=== PATIENT | male | born 1960 | race Caucasian/White ===

== ENCOUNTER 2017-01-29 07:19 | Emergency (ER) | payer OTHER ==
[~2017-01-29] VITALS: Ht 165.1 cm; Wt 147.4 kg
[2017-01-29 07:25] VITALS: BP 180/90
[2017-01-29] MEDS ORDERED: MORPHINE SULFAT30 M3 PO (08:07)
--- NOTE | 2017-01-29 08:09 | ED GENERAL ADULT ---
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 PT HAS APPOINTMENT FRIDAY AND TOOK HIS LAST PILL TODAY. WAS TOLD BY PAIN MANAGEMENT IN [place] TO GO TO ER FOR REFILL TO HOLD HIM OVER Triage Nurses Notes Reviewed? yes Onset: Just prior to arrival Duration: day(s):, constant Timing: recent history Severity: moderate No Modifying Factors: none HPI: The patient's prescriber is unable to fill his narcotic prescription and has been referred to pain management in 5 days and has no more medication. He denies fever chills nausea vomiting diarrhea abdominal pain chest pain shortness breath headache dysuria rash bleeding. Past History Travel History Traveled to [place] past 21 day No Medical History Any Pertinent Medical History? 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 No Review of Systems Review of Systems Constitutional: Reports: no symptoms. EENTM: Reports: no symptoms. Respiratory: Reports: no symptoms. Cardiovascular: Reports: no symptoms. GI: Reports: no symptoms. Genitourinary: Reports: no symptoms. Musculoskeletal: Reports: see HPI, back pain. Skin: Reports: no symptoms. Neurological/Psychological: Reports: no symptoms. Hematologic/Endocrine: Reports: no symptoms. Immunologic/Allergic: Reports: no symptoms. All Other Systems: Reviewed and Negative Physical Exam Physical Exam General Appearance: well developed/nourished, alert, awake, comfortable, obese Head: atraumatic, normal appearance Eyes: Bilateral: normal appearance, PERRL, EOMI. Ears, Nose, Throat: normal pharynx, normal ENT inspection Neck: normal inspection, supple, full range of motion, no midline tenderness Respiratory: normal breath sounds, chest non-tender, no respiratory distress, quiet respiration, lungs clear Cardiovascular: regular rate/rhythm, normal peripheral pulses, norml femoral pulses equa Peripheral Pulses: 4+ carotid (R), 4+ carotid (L) Gastrointestinal: normal bowel sounds, soft, non-tender, no organomegaly Back: normal inspection, normal range of motion Extremities: normal inspection, normal capillary refill, normal range of motion, no edema Neurologic/Psych: no motor/sensory deficits, awake, alert, oriented x 3, normal gait, normal mood/affect, 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 Skin: intact, normal color, warm/dry Lymphatic: no anterior cervical haritha Core Measures ACS in differential dx? No CVA/TIA Diagnosis: No Severe Sepsis Present: No Septic Shock Present: No Progress Differential Diagnoses I considered the following diagnoses in my evaluation of the patient: Chronic pain syndrome Plan of Care: Prescription refill Initial ED EKG: none Departure Departure Time of Disposition: 804 Disposition: HOME OR SELF CARE Condition: Stable Clinical Impression Primary Impression: Encounter for medication refill Referrals: MAGNUS KIMBALL MD (PCP/Family) Departure Forms: Customer Survey General Discharge Information Prescriptions: Current Visit Scripts Morphine Sulfate (Morphine Sulfate ER) 1 TAB PO Q6H PRN pain #25 TAB Critical Care Note Critical Care Note Critical Care Time: non-applicable
== END 2017-01-29 08:16 ==
LOC: ERH 07:19
DX: Z76.0 Encounter for issue of repeat prescription (principal)

== ENCOUNTER 2017-04-04 19:23 | Emergency (ER) | payer OTHER ==
[~2017-04-04] VITALS: Ht 165.1 cm; Wt 153.3 kg
[~2017-04-04 19:23] MED LIST: MORPHINE SULFAT30 M3 PO
[2017-04-04 19:28] VITALS: BP 148/87
--- NOTE | 2017-04-04 19:44 | ED UPPER/LOWER EXTREMITY COMPL ---
History of Present Illness General Chief Complaint: General Adult Stated Complaint: PT VARICOSE VEINS IN RT LEG WON'T STOP BLEEDING Source: patient Exam Limitations: no limitations Vital Signs & Intake/Output Vital Signs & Intake/Output Vital Signs Date Time Temp Pulse Resp B/P B/P Pulse O2 O2 Flow FiO2 Mean Ox Delivery Rate 04/04 1928 98.7 75 16 148/87 94 Room Air ED Intake and Output 04/05 0000 04/04 1200 Intake Total Output Total Balance Patient 338 lb Weight Weight Reported by Patient Measurement Method Allergies Coded Allergies: MDX - Ibuprofen (Ibuprofen) (UPSET STOMACH 05/17/11) Reconcile Medications Morphine Sulfate (Morphine Sulfate ER) 30 MG TABLET.ER 1 TAB PO Q6H PRN pain Triage Note: PT TO ED FOR "VARICOSE VEINS ON R LEG THAT WON'T STOP BLEEDING" BLEEDING STARTED YESTERDAY MORNING WHILE PT WAS IN SHOWER. HX OF SAME IN L LEG. BANDAGE NOTED TO BE SATURATED IN TRAIGE. THIS RN CHANGED DRESSING, BLEEDING CONTROLLED AT THIS TIME. PT OFFERS NO ADDITIONAL COMPLAINTS. PT TKAES ASPIRIN FOR HEART HEALTH. Triage Nurses Notes Reviewed? yes Onset: Abrupt Duration: hour(s): Timing: single episode today Severity: mild Pain/Injury Location: Right: Leg. Method of Injury: "I scratched my varicose veins with a towel." Modifying Factors: Improves With: rest. Associated Symptoms: sudden HPI: 56-year-old gentleman in prior good health presents with bleeding from a punctate varicose vein. He states that he given a shower earlier today and noted bleeding from varicose vein after he rubbed it with a towel. The bleeding self resolved. Then, he noted that the bleeding began again. This went on throughout much of the evening. Upon presentation he notes that the bleeding has stopped. He has no pain swelling redness is otherwise well. Past History Travel History Traveled to [place] past 21 day No Medical History Any Pertinent Medical History? 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 No Review of Systems Review of Systems Constitutional: Reports: no symptoms. EENTM: Reports: no symptoms. Respiratory: Reports: no symptoms. Cardiovascular: Reports: no symptoms. Gastrointestinal/Abdominal: Reports: no symptoms. Genitourinary: Reports: no symptoms. Musculoskeletal: Reports: no symptoms. Skin: Reports: no symptoms. Neurological/Psychological: Reports: no symptoms. Hematologic/Endocrine: Reports: no symptoms. Immunological: Reports: no symptoms. All Other Systems: Reviewed and Negative Physical Exam Physical Exam General Appearance: well developed/nourished, mild distress Head: atraumatic Eyes: Bilateral: normal appearance. Ears, Nose, Throat: normal pharynx, normal ENT inspection, hearing grossly normal Neck: normal inspection, supple Cardiovascular/Respiratory: regular rate/rhythm Back: normal inspection Leg Right: punctate varicose vein with well formed clot. no active bleeding. Skin: intact, normal color, warm/dry Lymphatic: no anterior cervical haritha Progress Differential Diagnosis: varicose vein Plan of Care: gauze pressure bandage placed... encouraged close follow up. Departure Departure Disposition: HOME OR SELF CARE Condition: Stable Clinical Impression Primary Impression: Bleeding from varicose vein Referrals: MAGNUS KIMBALL MD (PCP/Family) Departure Forms: Customer Survey General Discharge Information Comments pressure bandage placed around site of bleeding... no active bleeding in ED. referred to vascular surgeon.
== END 2017-04-04 20:26 ==
LOC: ERH 19:23
DX: I83.90 Asymptomatic varicose veins of unspecified lower extremity (principal)
CPT/HCPCS: 99282

== ENCOUNTER 2017-04-06 17:01 | Emergency (ER) | payer OTHER ==
[~2017-04-06] VITALS: Ht 165.1 cm; Wt 153.3 kg
[2017-04-06] MEDS ORDERED: METFORMIN HCL500 M3 PO (18:17)
[2017-04-06] MEDS ORDERED: HYDROCODON-ACE1 EAC1 PO (18:18)
[2017-04-06] MEDS ORDERED: MORPHINE SULFAT30 M3 PO (18:18)
[2017-04-06] MEDS ORDERED: AZELASTINE137 MCG/0. NASB (18:19)
[2017-04-06] MEDS ORDERED: METOPROLOL TART25 M1 PO (18:19)
[2017-04-06] MEDS ORDERED: HUMIRA PEN40 MG/0.8 SC (18:19)
[2017-04-06] MEDS ORDERED: ZETIA10 M1 PO (18:19)
[2017-04-06] MEDS ORDERED: MONTELUKAST SOD10 M1 PO (18:20)
[2017-04-06] MEDS ORDERED: LOSARTAN-HCTZ1 EAC2 PO (18:20)
[2017-04-06] MEDS ORDERED: GABAPENTIN300 M2 PO (18:20)
[2017-04-06] MEDS ORDERED: TESTOSTERO200 MG/1 M IM (18:21)
[2017-04-06] MEDS ORDERED: CLOTRIMAZOLE-BE15 GM TOP (18:21)
[2017-04-06] MEDS ORDERED: SPIRIVA RESPIMAT4 GM INH (18:21)
[2017-04-06] MEDS ORDERED: MAGNESIUM400 M1 PO (18:22)
[2017-04-06] MEDS ORDERED: ASPIRIN EC81 M1 PO (18:22)
[2017-04-06] MEDS ORDERED: PROBIOTIC1 EACH PO (18:23)
[2017-04-06] MEDS ORDERED: POTASSIUM99 M1 PO (18:23)
--- NOTE | 2017-04-06 18:30 | ED SKIN/ALLERGY COMPLAINT ---
History of Present Illness General Chief Complaint: Lower Extremity Problems Stated Complaint: BLEEDING FROM VARICOSE VEIN Source: patient Exam Limitations: no limitations Allergies Coded Allergies: ibuprofen (GI UPSET 04/06/17) Reconcile Medications Adalimumab (Humira Pen) 40 MG/0.8 ML PEN.IJ.KIT 1 SYR SC Q2W PSORIASIS ( Reported) Aspirin (Ecotrin*) 81 MG TABLET.DR 1 TAB PO DAILY HEART/BLOOD (Reported) Azelastine HCl 137 MCG (0.1 %) SPRAY.PUMP 2 SPRAY NASB PRN NASAL CONGESTION ( Reported) Clotrimazole/Betamethasone Dip (Clotrimazole-Betamethasone Crm) 1 %-0.05 % CREAM..G. 1 KEISHA TOP PRN PSORIASIS (Reported) apply to affected area(s) Ezetimibe (Zetia) 10 MG TABLET 1 TAB PO DAILY CHOLESTEROL (Reported) Gabapentin 300 MG CAPSULE 1 CAP PO BID NERVE PAIN (Reported) Hydrocodone/Acetaminophen (Hydrocodon-Acetaminophn 10-325) 10 MG-325 MG TABLET 1 TAB PO Q8H PAIN (Reported) Lactobacillus Acidophilus (Probiotic) (Unknown Strength) CAPSULE (Unknown Dose ) PO DAILY PROBIOTIC (Reported) Losartan/Hydrochlorothiazide (Losartan-Hctz 100-25 MG Tab) 100 MG-25 MG TABLET 1 TAB PO DAILY BP (Reported) Magnesium Oxide (Magnesium) 400 MG CAPSULE 1 CAP PO TUESTHURSSAT SUPPLEMENT ( Reported) Metformin HCl 500 MG TABLET 0.5 TAB PO DAILY DM (Reported) Metoprolol Tartrate 25 MG TABLET 2 TAB PO BID HEART/BP (Reported) Montelukast Sodium 10 MG TABLET 1 TAB PO DAILY ALLERGIES (Reported) Morphine Sulfate (Morphine Sulfate ER) 30 MG TABLET.ER 1 TAB PO Q8H PAIN ( Reported) Potassium Gluconate (Potassium) 595 MG (99 MG) TABLET 1 TAB PO Friday SUPPLEMENT (Reported) Testosterone Cypionate 200 MG/ML VIAL 1.5 ML IM Q3W HRT (Reported) Tiotropium [place] (Spiriva Respimat) 2.5 MCG/ACTUATION MIST.INHAL 1 PUFF INH DAILY COPD (Reported) Triage Note: PT STATES HE IS BLEEDING FROM HIS VARICOSE VEIN. PT STATES HE WAS SEEN HERE FRIDAY FOR SAME. PT STATES HE TOOK THE GUAZE OFF TODAY AND IT BEGAN BLEEDING AGAIN Triage Nurses Notes Reviewed? yes HPI: This patient is a 56-year-old male who presented to the emergency department today for evaluation of a bleeding varicose vein to his right leg. The patient reported that he was seen here in the emergency Department for the same and a pressure dressing was applied to the wound. He was given a vascular surgeon who he has not followed up with yet because it is currently the weekend. The patient reported that he took the bandage off today and the vein began to bleed again. He denied any pain. He denied any dizziness, lightheadedness, chest pain, difficult breathing, abdominal pain, nausea, vomiting, or any other associated symptoms. This patient is not on any blood thinners. (DONNELL LONDON PA-C) Vital Signs & Intake/Output Vital Signs & Intake/Output Vital Signs Date Time Temp Pulse Resp B/P B/P Pulse O2 O2 Flow FiO2 Mean Ox Delivery Rate 04/06 1903 98.6 87 24 148/82 92 Room Air 04/06 1711 99.4 84 18 170/98 92 Room Air ED Intake and Output 04/07 0000 04/06 1200 Intake Total Output Total Balance Patient 338 lb Weight Weight Reported by Patient Measurement Method Past History Travel History Traveled to [facility] past 21 day No Medical History Any Pertinent Medical History? 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 No (DONNELL LONDON PA-C) Review of Systems Review of Systems Constitutional: Reports: no symptoms. EENTM: Reports: no symptoms. Respiratory: Reports: no symptoms. Cardiovascular: Reports: no symptoms. GI: Reports: no symptoms. Genitourinary: Reports: no symptoms. Musculoskeletal: Reports: no symptoms. Skin: Reports: no symptoms. Neurological/Psychological: Reports: no symptoms. Hematologic/Endocrine: Reports: see HPI. All Other Systems: Reviewed and Negative (DONNELL LONDON PA-C) Physical Exam Physical Exam General Appearance: well developed/nourished, no apparent distress, alert, awake Comments: Well-developed well-nourished person in no acute distress HEENT: Head normocephalic, moist mucous membranes Neck: Supple, no lymphadenopathy Back: Antalgic gait Respiratory: No respiratory distress. Speaking in full sentences Extremities: No edema, full range of motion Neuro: Alert and oriented x3 Psych: Mood affect normal, normal memory normal judgment. Skin: Warm and dry, no rash on exposed skin. To the distal, anterior right orellana there is actively bleeding varicose vein with no surrounding erythema and mild amount of surrounding edema. Mildly tender to palpation around the site. (DONNELL LONDON PA-C) Progress Differential Diagnosis: abscess/cellulitis, drug reaction, VARICOSE VEIN Plan of Care: Current Medications Sig/Jerry Start time Last Medication Dose Stop Time Status Admin Lidocaine/Epinephrine 10 ML ONCE ONE 04/06 1815 UNVr (Lidocaine 1% Epi- 04/06 1816 10ML Inj) Departure Departure Disposition: HOME OR SELF CARE Condition: Stable Clinical Impression Primary Impression: Bleeding from varicose vein Qualifiers: Laterality: right Qualified Code: I83.891 - Varicose veins of right lower extremities with other complications Referrals: JIGAR GRULLON,MAGNUS Hummel (PCP/Family) Additional Instructions: Please follow up with the vascular surgeon whose information has been given to you; call them on Friday to schedule an appointment. Return to the emergency department if you are not seen by the vascular surgeonin 7-10 days to evaluate the wound site and to have the suture removed. Return sooner for any worsening symptoms, excessive pain, worsening bleeding, spreading of redness around the site, pus drainage from the site, fevers, chills, or for any other concerns. 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 I have also reviewed all the pertinent lab results and diagnostic results. I agree with the findings and the plan of care as documented in the PA's/JUNIOR MANUFACTURING ENGINEER's documentation. [] I have reviewed the ED Record and agree with the PA's/JUNIOR MANUFACTURING ENGINEER's documentation. [] Additions or exceptions (if any) to the PAs/JUNIOR MANUFACTURING ENGINEER's note and plan are summarized below: [] (DEIDRE GRULLON,JOANNA) Procedures Laceration/Wound Repair Laceration/Wound Repair: Wound Location: lower extremity (RIGHT ANTERIOR ORELLANA) Wound's Depth, Shape: VARICOSE VEIN Wound Length (cm): 0.5 Wound Explored: irrigated extensively Irrigated w/ Saline (ccs): 200 Betadine Prep? Yes Anesthesia: lidocaine w/ epi Volume Anesthetic (ccs): 3 Wound Repaired With: sutures Suture Size/Type: 4:0 Number of Sutures: 1 Layer Closure? No Sterile Dressing Applied: Yes Progress: PURSESTRING suture placed using sterile procedure after 1% lidocaine with epinephrine was used for local anesthesia to close off the opened, bleeding varicose vein. Patient tolerated the procedure well. JOSUÉ student assisted with the procedure. (LITA ONEILL,DONNELL)
[2017-04-06 19:03] VITALS: BP 148/82
== END 2017-04-06 19:04 ==
LOC: ERH 17:01
DX: I83.891 Varicose veins of right lower extremity with other complications (principal)

== ENCOUNTER 2017-04-14 07:01 | Emergency (ER) | payer OTHER ==
[~2017-04-14] VITALS: Ht 165.1 cm; Wt 153.3 kg
[~2017-04-14 07:01] MED LIST changes: +ASPIRIN EC81 M1 PO; +AZELASTINE137 MCG/0. NASB; +CLOTRIMAZOLE-BE15 GM TOP; +GABAPENTIN300 M2 PO; +HUMIRA PEN40 MG/0.8 SC; +HYDROCODON-ACE1 EAC1 PO; +LOSARTAN-HCTZ1 EAC2 PO; +MAGNESIUM400 M1 PO; +METFORMIN HCL500 M3 PO; +METOPROLOL TART25 M1 PO; +MONTELUKAST SOD10 M1 PO; +POTASSIUM99 M1 PO; +PROBIOTIC1 EACH PO; +SPIRIVA RESPIMAT4 GM INH; +TESTOSTERO200 MG/1 M IM; +ZETIA10 M1 PO
[2017-04-14 07:12] VITALS: BP 139/81
--- NOTE | 2017-04-14 07:27 | ED GENERAL ADULT ---
History of Present Illness General Chief Complaint: Suture Removal/Wound Recheck Stated Complaint: SUTURE REMOVAL Source: patient Exam Limitations: no limitations Vital Signs & Intake/Output Vital Signs & Intake/Output Vital Signs Date Time Temp Pulse Resp B/P B/P Pulse O2 O2 Flow FiO2 Mean Ox Delivery Rate 04/14 0712 98.0 72 18 139/81 95 Room Air Allergies Coded Allergies: ibuprofen (GI UPSET 04/06/17) Reconcile Medications Adalimumab (Humira Pen) 40 MG/0.8 ML PEN.IJ.KIT 1 SYR SC Q2W PSORIASIS ( Reported) Aspirin (Ecotrin*) 81 MG TABLET.DR 1 TAB PO DAILY HEART/BLOOD (Reported) Azelastine HCl 137 MCG (0.1 %) SPRAY.PUMP 2 SPRAY NASB PRN NASAL CONGESTION ( Reported) Clotrimazole/Betamethasone Dip (Clotrimazole-Betamethasone Crm) 1 %-0.05 % CREAM..G. 1 KEISHA TOP PRN PSORIASIS (Reported) apply to affected area(s) Ezetimibe (Zetia) 10 MG TABLET 1 TAB PO DAILY CHOLESTEROL (Reported) Gabapentin 300 MG CAPSULE 1 CAP PO BID NERVE PAIN (Reported) Hydrocodone/Acetaminophen (Hydrocodon-Acetaminophn 10-325) 10 MG-325 MG TABLET 1 TAB PO Q8H PAIN (Reported) Lactobacillus Acidophilus (Probiotic) (Unknown Strength) CAPSULE (Unknown Dose ) PO DAILY PROBIOTIC (Reported) Losartan/Hydrochlorothiazide (Losartan-Hctz 100-25 MG Tab) 100 MG-25 MG TABLET 1 TAB PO DAILY BP (Reported) Magnesium Oxide (Magnesium) 400 MG CAPSULE 1 CAP PO TuThSa SUPPLEMENT ( Reported) Metformin HCl 500 MG TABLET 0.5 TAB PO DAILY DM (Reported) Metoprolol Tartrate 25 MG TABLET 2 TAB PO BID HEART/BP (Reported) Montelukast Sodium 10 MG TABLET 1 TAB PO DAILY ALLERGIES (Reported) Morphine Sulfate (Morphine Sulfate ER) 30 MG TABLET.ER 1 TAB PO Q8H PAIN ( Reported) Potassium Gluconate (Potassium) 595 MG (99 MG) TABLET 1 TAB PO MoWeFr SUPPLEMENT (Reported) Testosterone Cypionate 200 MG/ML VIAL 1.5 ML IM Q3W HRT (Reported) Tiotropium [place] (Spiriva Respimat) 2.5 MCG/ACTUATION MIST.INHAL 1 PUFF INH DAILY COPD (Reported) Triage Note: 56 Y/O MALE REQUESTING SUTURE REMOVAL FROM R LOWER EXTREMITY - ? 1 PLACED LAST FRIDAY DUE TO VARICOSE VEIN THAT "POPPED". PT STATES "I THINK ITS JUST ONE BUT THE DOCTOR SAID HE LOOPED IT" PT DENIES COMPLAINTS. Triage Nurses Notes Reviewed? yes Onset: Abrupt Duration: day(s): Timing: recent history HPI: 04/14/17 8 AM 56-year-old man presents to the emergency department for suture removal to the right lower extremity. The patient was seen in the emergency department approximately one week ago for bleeding varicosity. He had a single running suture placed by the ED physician to stop ongoing bleeding. The onset of the symptoms were abrupt, the duration was one week, the severity was significant as his symptoms required him to come to the emergency department for care. He has no associated shortness of breath chest pain or other complaints. Past History Travel History Traveled to [facility] past 21 day No Medical History Any Pertinent Medical History? 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 No Review of Systems Review of Systems Constitutional: Reports: no symptoms. EENTM: Reports: no symptoms. Respiratory: Denies: short of breath. Cardiovascular: Denies: chest pain. GI: Reports: no symptoms. Genitourinary: Reports: no symptoms. Musculoskeletal: Reports: muscle pain. Skin: Denies: rash. Neurological/Psychological: Reports: no symptoms. Hematologic/Endocrine: Reports: see HPI. Physical Exam Physical Exam General Appearance: well developed/nourished, alert, awake Head: atraumatic, normal appearance Eyes: Bilateral: normal appearance, PERRL, EOMI. Ears, Nose, Throat: normal pharynx, normal ENT inspection Neck: normal inspection, supple Respiratory: normal breath sounds, chest non-tender, no respiratory distress Cardiovascular: regular rate/rhythm Peripheral Pulses: 4+ dorsalis pedis (R) Gastrointestinal: non-tender Extremities: 1 suture right leg Neurologic/Psych: no motor/sensory deficits, awake, alert, oriented x 3 Skin: intact, normal color, warm/dry Core Measures ACS in differential dx? No CVA/TIA Diagnosis: No Severe Sepsis Present: No Septic Shock Present: No Progress Differential Diagnoses I considered the following diagnoses in my evaluation of the patient: [Wound infection, abscess, retained foreign body, ongoing bleeding varicosity] Plan of Care: Procedure The suture was removed from the right lower leg. There was no active bleeding no redness no complications. Sterile dressing was applied. Initial ED EKG: none Departure Departure Disposition: STILL A PATIENT Condition: Stable Clinical Impression Primary Impression: Visit for suture removal Referrals: MAGNUS KIMBALL MD (PCP/Family) Departure Forms: Customer Survey General Discharge Information Critical Care Note Critical Care Note Critical Care Time: non-applicable
== END 2017-04-14 08:03 ==
LOC: ERH 07:01
DX: S81.811D Laceration without foreign body, right lower leg, subsequent encounter (principal)
CPT/HCPCS: 99281

== ENCOUNTER 2017-04-25 18:09 | Emergency (ER) | payer OTHER ==
[~2017-04-25] VITALS: Ht 165.1 cm; Wt 151.0 kg
[2017-04-25 19:06] LABS: ABSOLUTE BASOPHIL COUNT 0 /CUMM (0.0-0.2); ABSOLUTE EOSINOPHIL COUNT 0 /CUMM (0.0-0.7); ABSOLUTE LYMPH COUNT 1.1 /CUMM (1.2-3.4); ABSOLUTE MONOCYTE COUNT 0.9 /CUMM (0.10-0.60); BASOPHIL % 0 % (0.0-2.0); EOSINOPHIL % 0.1 % (0-5); GRANULOCYTE % 88.2 % (42.2-75.2); HEMATOCRIT 52.1 % (42-52); MEAN CORPUSCULAR HGB 28.3 PG (27.0-31.0); MEAN CORPUSCULAR VOLUME 85.7 FL (80.0-94.0); MEAN PLATELET VOLUME 8.7 FL (7.4-10.4); PLATELET COUNT 165 /CUMM (130-400); RBC DISTRIBUTION WIDTH 16.3 % (11.5-14.5); RED BLOOD CELL CT 6.08 /CUMM (4.70-6.10)
--- NOTE | 2017-04-25 19:31 | RADIOLOGY REPORT ---
EXAMINATION: XR CHEST CLINICAL INFORMATION: Fever and cough COMPARISON: 03/27/2017 TECHNIQUE: 2 views of the chest were obtained. FINDINGS: Median sternotomy wires appear intact. Low lung volumes. Diffuse bronchial wall thickening. No consolidation, edema, or effusion. No pneumothorax. The cardiomediastinal silhouette is unchanged. Degenerative changes of the spine. IMPRESSION: No consolidation. Bronchial wall thickening can be seen with a small airways process such as asthma or atypical/viral infection.
[2017-04-25] MEDS ORDERED: AMLODIPINE BESYL5 M1 PO (20:13)
--- NOTE | 2017-04-25 20:19 | ED DYSPNEA/ASTHMA COMPLAINT ---
History of Present Illness General Chief Complaint: General Adult Stated Complaint: FEVER AND FLANK PAIN NO C/P OR SOB Source: patient Exam Limitations: no limitations Vital Signs & Intake/Output Vital Signs & Intake/Output Vital Signs Date Time Temp Pulse Resp B/P B/P Pulse O2 O2 Flow FiO2 Mean Ox Delivery Rate 04/25 2108 98.5 98 18 128/76 96 Room Air 04/25 2050 Room Air 04/25 1824 100.8 105 18 134/78 94 Room Air ED Intake and Output 04/26 0000 04/25 1200 Intake Total 50 Output Total Balance 50 Intake, IV 50 Patient 333 lb Weight Allergies Coded Allergies: ibuprofen (GI UPSET 04/06/17) Reconcile Medications Adalimumab (Humira Pen) 40 MG/0.8 ML PEN.IJ.KIT 1 SYR SC Q2W PSORIASIS ( Reported) Amlodipine Besylate 5 MG TABLET 1 TAB PO DAILY BP (Reported) Aspirin (Ecotrin*) 81 MG TABLET.DR 1 TAB PO DAILY HEART/BLOOD (Reported) Azelastine HCl 137 MCG (0.1 %) SPRAY.PUMP 2 SPRAY NASB PRN NASAL CONGESTION ( Reported) Clotrimazole/Betamethasone Dip (Clotrimazole-Betamethasone Crm) 1 %-0.05 % CREAM..G. 1 KEISHA TOP PRN PSORIASIS (Reported) apply to affected area(s) Ezetimibe (Zetia) 10 MG TABLET 1 TAB PO DAILY CHOLESTEROL (Reported) Gabapentin 300 MG CAPSULE 1 CAP PO BID NERVE PAIN (Reported) Hydrocodone/Acetaminophen (Hydrocodon-Acetaminophn 10-325) 10 MG-325 MG TABLET 1 TAB PO Q8H PAIN (Reported) Lactobacillus Acidophilus (Probiotic) (Unknown Strength) CAPSULE (Unknown Dose ) PO DAILY PROBIOTIC (Reported) Levofloxacin (Levaquin) 500 MG TABLET 1 TAB PO DAILY bronchitis/fever Losartan/Hydrochlorothiazide (Losartan-Hctz 100-25 MG Tab) 100 MG-25 MG TABLET 1 TAB PO DAILY BP (Reported) Magnesium Oxide (Magnesium) 400 MG CAPSULE 1 CAP PO TuThSa SUPPLEMENT ( Reported) Metformin HCl 500 MG TABLET 0.5 TAB PO DAILY DM (Reported) Metoprolol Tartrate 25 MG TABLET 2 TAB PO BID HEART/BP (Reported) Montelukast Sodium 10 MG TABLET 1 TAB PO DAILY ALLERGIES (Reported) Morphine Sulfate (Morphine Sulfate ER) 30 MG TABLET.ER 1 TAB PO Q8H PAIN ( Reported) Potassium Gluconate (Potassium) 595 MG (99 MG) TABLET 1 TAB PO MoWeFr SUPPLEMENT (Reported) Testosterone Cypionate 200 MG/ML VIAL 1.5 ML IM Q3W HRT (Reported) Tiotropium Bishop (Spiriva Respimat) 2.5 MCG/ACTUATION MIST.INHAL 1 PUFF INH DAILY COPD (Reported) Triage Note: 56 YEAR OLD ,MALE SENT TO ER BY HIS PMD TO RULE OUT PNA/ UROSEPSIS, PT STATES THAT HE HAS HAD FEVER SINCE YESTERDAY, HAS BEEN TAKING ADVIL FOR TEMP. FEBRILE 100.8, TOOK ADVIL AT 1700. DENIES N/V/D COMPLAINS OF BILATERAL FLANK PAIN Triage Nurses Notes Reviewed? yes Onset: Gradual Duration: day(s): Timing: recent history Severity: moderate Activities at Onset: none Prior Episodes/Possible Cause: no prior episodes Modifying Factors: Improves With: rest. Associated Symptoms: cough HPI: 56 yo gentleman, w/ psoriasis on humira, with elevated temp starting at 8:30pm, fever early this morning. He notes cough with phelgm, no chest pain, diarrhea, dysuria, abdominal pain, shortness of breath. He notes that he smokes occasionally. He is otherwise well. Past History Travel History Traveled to [place] past 21 day No Medical History Any Pertinent Medical History? see below for history Neurological: NONE EENT: NONE Cardiovascular: hypertension Respiratory: NONE Gastrointestinal: NONE Hepatic: NONE Renal: NONE Musculoskeletal: chronic back pain Psychiatric: NONE Endocrine: NONE Blood Disorders: NONE Cancer(s): NONE SAFETY PHYSICIAN/Reproductive: NONE Surgical History Surgical History: non-contributory Psychosocial History Who do you live with Family Services at Home None What is your primary language Singaporean Tobacco Use: Never used ETOH Use: denies use Illicit Drug Use: denies illicit drug use Family History Hx Contributory? No Review of Systems Review of Systems Constitutional: Reports: no symptoms. EENTM: Reports: no symptoms. Respiratory: Reports: no symptoms. Cardiovascular: Reports: no symptoms. GI: Reports: no symptoms. Genitourinary: Reports: no symptoms. Musculoskeletal: Reports: no symptoms. Skin: Reports: no symptoms. Neurological/Psychological: Reports: no symptoms. Hematologic/Endocrine: Reports: no symptoms. Immunologic/Allergic: Reports: no symptoms. All Other Systems: Reviewed and Negative Physical Exam Physical Exam General Appearance: well developed/nourished, mild distress Head: atraumatic, normal appearance Eyes: Bilateral: normal appearance. Ears, Nose, Throat: normal pharynx, normal ENT inspection Neck: normal inspection, supple, full range of motion Respiratory: rhonchi Cardiovascular: regular rate/rhythm Gastrointestinal: normal bowel sounds, soft, non-tender, no organomegaly Extremities: normal inspection Neurologic/Psych: no motor/sensory deficits, awake, alert, oriented x 3 Skin: intact, normal color, warm/dry Core Measures ACS in differential dx? No Severe Sepsis Present: No Septic Shock Present: No Progress Differential Diagnosis: asthma, bronchitis, pneumonia Plan of Care: Orders Procedure Date/time Status BLOOD CULTURE 04/25 2028 Active Add-on Test (ER Only) 04/25 1952 Active URINALYSIS 04/25 1856 Complete TROPONIN LEVEL 04/25 1845 Complete BLOOD CULTURE 04/25 1828 Active COMPREHENSIVE METABOLIC PANEL 04/25 1828 Complete CBC WITHOUT DIFFERENTIAL 04/25 1828 Complete Laboratory Tests 04/25/17 1900: Urine Color YEL, Urine Clarity CLEAR, Urine pH 6.0, Ur Specific [place] 1.025, Urine Protein >=300 H, Urine Ketones TRACE H, Urine Nitrite POS H, Urine Bilirubin NEG@ICTO, Urine Urobilinogen 4.0 H, Ur Leukocyte Esterase NEG, Ur Microscopic SEDIMENT EXAMINED, Urine RBC 1-3, Urine WBC RARE, Ur Epithelial Cells FEW, Urine Bacteria MOD H, Urine Mucus FEW, Urine Hemoglobin MOD H, Urine Glucose NEG 04/25/171844: Anion Gap 11, Estimated GFR > 60, BUN/Creatinine Ratio 20.0, Glucose 159 H, Calcium 8.4, Total Bilirubin 1.2, AST 30, ALT 40, Alkaline Phosphatase 61, Troponin I 0.03, Total Protein 6.9, Albumin 3.6, Globulin 3.3, Albumin/Globulin Ratio 1.1, D-Dimer Cancelled, CBC w Diff NO MAN DIFF REQ, RBC 6.08, MCV 85.7, MCH 28.3, RDW 16.3 H, MPV 8.7, Gran % 88.2 H, Lymphocytes % 6.4 L, Monocytes % 5.3, Eosinophils % 0.1, Basophils % 0 L, Absolute Granulocytes 15.0 H, Absolute Lymphocytes 1.1 L, Absolute Monocytes 0.9 H, Absolute Eosinophils 0, Absolute Basophils 0, PUBS MCHC 33.0 Microbiology 04/25 2038 BLOOD: Blood Culture - RECD 04/25 1845 BLOOD: Blood Culture - RECD Initial ED EKG: normal axis, normal intervals, normal p-waves, normal QRS complex, normal sinus rhythm Comments: PATIENT: OSWALDO VELÁSQUEZ PRESENT AGE: 56 PATIENT ACCOUNT NO: [id number] : 60 LOCATION: [facility] ORDERING PHYSICIAN: LEAH ATKINS DO (TBS) SERVICE DATE: 04/25/17 EXAM TYPE: RAD - XRY-CHEST XRAY, PA AND LATERAL EXAMINATION: XR CHEST CLINICAL INFORMATION: Fever and cough COMPARISON: 03/27/2017 TECHNIQUE: 2 views of the chest were obtained. FINDINGS: Median sternotomy wires appear intact. Low lung volumes. Diffuse bronchial wall thickening. No consolidation, edema, or effusion. No pneumothorax. The cardiomediastinal silhouette is unchanged. Degenerative changes of the spine. IMPRESSION: No consolidation. Bronchial wall thickening can be seen with a small airways process such as asthma or atypical/viral infection. DICTATED BY: GERONIMO CARTER MD DATE/TIME DICTATED:04/25/171923 SOUND EFFECTS SUPERVISOR:SATHISH DATE/TIME TRANSCRIBED:04/25/171923 CONFIDENTIAL, DO NOT COPY WITHOUT APPROPRIATE AUTHORIZATION. <Electronically signed in Other Vendor System> SIGNED BY: GERONIMO CARTER MD 04/25 Departure Departure Disposition: HOME OR SELF CARE Condition: Stable Clinical Impression Primary Impression: Fever Secondary Impressions: Bronchitis Referrals: JIGAR GRULLON,MAGNUS Hummel (PCP/Family) Departure Forms: Customer Survey General Discharge Information Prescriptions: Current Visit Scripts Levofloxacin (Levaquin) 1 TAB PO DAILY #10 TAB Comments pt stable in ED, cxr equivocal, labs benign... however, given the height of his fever, his immunosuppression (pt on humira), pt merits abx, close follow up. Discussed at length. pt feels comfortable being discharged. Critical Care Note Critical Care Note Critical Care Time: non-applicable
[2017-04-25] MEDS ORDERED: LEVAQUIN500 M1 PO (20:30)
[2017-04-25 21:08] VITALS: BP 128/76
== END 2017-04-25 21:09 ==
LOC: ERH 18:09
PROVIDERS: Emergency Medicine
DX: J40 Bronchitis, not specified as acute or chronic (principal)
CPT/HCPCS: 81001; 87040; 96374; 96375; J0696; J1885